=== PATIENT | female | born 1990 | race Caucasian/White ===

== ENCOUNTER 2019-01-18 19:27 | Emergency (ER) | payer OTHER | END 2019-01-18 22:25 | disposition other institution (70) | LOC: ED 19:27 | DX: Z02.89 Encounter for other administrative examinations (principal) ==

== ENCOUNTER 2019-01-18 19:27 | Emergency (ER) | payer OTHER ==
[~2019-01-18] VITALS: Ht 165.1 cm; Wt 74.8 kg
[2019-01-18 19:44] VITALS: Ht 165.1 cm; Wt 74.8 kg
[2019-01-18 21:01] LABS: BASOPHIL % 0.1 % (0-2); PLATELET COUNT 411 x10^3mcL (130-400); RED CELL DISTRIBUTION WIDTH 13.6 % (11.5-14.5)
[2019-01-18 21:07] LABS: CALCIUM 8.4 mg/dL (8.5-10.1); CARBON DIOXIDE 28.9 mmol/L (21-32); CHLORIDE SERUM 104 mmol/L (98-107); CREATININE SERUM 0.8 mg/dL (0.6-1.0); GFR1 > 60 mL/min; GLUCOSE SERUM 119 mg/dL (74-106); POTASSIUM SERUM 3.8 mmol/L (3.5-5.1); SODIUM SERUM 140 mmol/L (136-145)
[2019-01-18 21:12] LABS: ALBUMIN 3.5 g/dL (3.4-5.0); ALKALINE PHOSPHATASE 62 U/L (46-116); ALT/SGPT 23 U/L (14-59); AST/SGOT 17 U/L (15-37); BILIRUBIN TOTAL 0.2 mg/dL (0.20-1.00); TOTAL PROTEIN, SERUM 7.3 g/dL (6.4-8.2)
[2019-01-18 21:29] LABS: AMPHETAMINE QUAL UR POSITIVE (See below)
[2019-01-18 22:25] VITALS: BP 143/103
== END 2019-01-18 22:25 | disposition other institution (70) ==
LOC: ED 19:27
PROVIDERS: Emergency Medicine
DX: F15.10 Other stimulant abuse, uncomplicated (principal); N39.0 Urinary tract infection, site not specified; I10 Essential (primary) hypertension; J45.909 Unspecified asthma, uncomplicated; Z91.040 Latex allergy status
CPT/HCPCS: 36415; Q0162

== ENCOUNTER 2019-04-02 07:57 | Emergency (ER) | payer OTHER ==
[~2019-04-02] VITALS: Ht 165.1 cm; Wt 77.1 kg
[2019-04-02 08:04] VITALS: Ht 165.1 cm; Wt 77.1 kg
[2019-04-02 09:50] LABS: microscopic required? YES; urine erythrocyte 2+ (NEGATIVE)
[2019-04-02 09:52] LABS: BASOPHIL % 0.5 % (0-2); PLATELET COUNT 358 x10^3mcL (130-400); RED CELL DISTRIBUTION WIDTH 14.3 % (11.5-14.5)
[2019-04-02 10:04] LABS: AMPHETAMINE QUAL UR POSITIVE (See below)
[2019-04-02 10:13] LABS: ALKALINE PHOSPHATASE 45 U/L (46-116); ALT/SGPT 27 U/L (14-59); AST/SGOT 12 U/L (15-37); BILIRUBIN TOTAL 0.2 mg/dL (0.20-1.00); CALCIUM 8.9 mg/dL (8.5-10.1); CARBON DIOXIDE 31.5 mmol/L (21-32); CHLORIDE SERUM 106 mmol/L (98-107); CREATININE SERUM 0.6 mg/dL (0.6-1.0); GFR1 > 60 mL/min; GLUCOSE SERUM 68 mg/dL (74-106); POTASSIUM SERUM 4.3 mmol/L (3.5-5.1); SODIUM SERUM 143 mmol/L (136-145); TOTAL PROTEIN, SERUM 6.8 g/dL (6.4-8.2)
[2019-04-02 10:14] LABS: ALBUMIN 3.2 g/dL (3.4-5.0)
[2019-04-02 11:07] VITALS: BP 112/57
== END 2019-04-02 11:07 | disposition home or self-care (01) ==
LOC: ED 07:57
PROVIDERS: Emergency Medicine
DX: N93.8 Other specified abnormal uterine and vaginal bleeding (principal); I10 Essential (primary) hypertension; J45.909 Unspecified asthma, uncomplicated; Z91.040 Latex allergy status
CPT/HCPCS: 36415